=== PATIENT | male | born 1990 | race African-American/Black ===

== ENCOUNTER 2016-11-20 17:21 | Emergency (ER) | payer SELFPAY ==
[~2016-11-20 17:21] MED LIST: KEFLEX500 MG PO; LORTAB 5-325 M1 EAC1 PO; NORCO 5/325 TAB1 TAB PO; PEN-VEE K500 MG PO; ULTRAM50 MG PO
[2016-11-20] MEDS ORDERED: ASPIRIN325 M3 PO (18:03)
[2016-11-20] MEDS ORDERED: PENICILLIN V P500 M1 PO (18:43)
[2016-11-20] MEDS ORDERED: NORCO 5-325 TA1 EACH PO (18:43)
== END 2016-11-20 18:57 ==
LOC: EDMED 17:21
DX: K08.89 Other specified disorders of teeth and supporting structures (principal); F90.9 Attention-deficit hyperactivity disorder, unspecified type; F32.9 Major depressive disorder, single episode, unspecified; F41.9 Anxiety disorder, unspecified; Z79.899 Other long term (current) drug therapy; F17.210 Nicotine dependence, cigarettes, uncomplicated

== ENCOUNTER 2016-11-22 20:21 | Emergency (ER) | payer SELFPAY ==
[~2016-11-22 20:21] MED LIST changes: +ASPIRIN325 M3 PO; +NORCO 5-325 TA1 EACH PO; +PENICILLIN V P500 M1 PO
[2016-11-23] MEDS ORDERED: PERCOCET 5-3251 EACH PO (00:25)
== END 2016-11-23 00:59 ==
LOC: EDMED 20:21
DX: S02.5XXA Fracture of tooth (traumatic), initial encounter for closed fracture (principal); F90.9 Attention-deficit hyperactivity disorder, unspecified type; F32.9 Major depressive disorder, single episode, unspecified; F41.9 Anxiety disorder, unspecified; X58.XXXA Exposure to other specified factors, initial encounter
CPT/HCPCS: J1170

== ENCOUNTER 2017-01-02 16:57 | Emergency (ER) | payer SELFPAY ==
[~2017-01-02 16:57] MED LIST changes: +PERCOCET 5-3251 EACH PO
[2017-01-02] MEDS ORDERED: ULTRAM50 M1 PO (17:30)
== END 2017-01-02 17:30 ==
LOC: EDMED 16:57
DX: K02.9 Dental caries, unspecified (principal); F32.9 Major depressive disorder, single episode, unspecified; F41.9 Anxiety disorder, unspecified; F90.9 Attention-deficit hyperactivity disorder, unspecified type; Z88.0 Allergy status to penicillin; F17.200 Nicotine dependence, unspecified, uncomplicated; Z79.899 Other long term (current) drug therapy